=== PATIENT | male | born 1980 | race Caucasian/White ===

== ENCOUNTER 2017-04-01 19:32 | Emergency (ER) | payer BC ==
[~2017-04-01] VITALS: Ht 180.3 cm; Wt 171.0 kg
[2017-04-01 19:36] VITALS: TEMP 36.9; Ht 180.3 cm; Wt 171.0 kg
--- NOTE | 2017-04-01 19:53 | EMERGENCY ROOM VISIT NOTE ---
ED Visit Note First contact with patient: 19:41 CHIEF COMPLAINT: Elbow pain HISTORY OF PRESENT ILLNESS: This 36-year-old male patient presents to the emergency department ambulatory complaining of pain in the anterior right elbow. [place] He was seated. He states the dog pulled behind the chair, holding his arm causing hyperextension. He felt a pop. He has difficulty moving the right elbow. The patient rates his pain as sharp and 6/10. The patient has taken nothing for relief of the pain. The patient has not had previous injuries to this elbow. The patient does not have any numbness or tingling. The patient denies any other injuries. REVIEW OF SYSTEMS: A 6 system review of systems was completed with positives and pertinent negatives listed in the HPI. ALLERGIES: No known drug allergies MEDICATIONS: Vitamins PMH: Patient denies SOCIAL HISTORY: The patient lives locally. He does not smoke PHYSICAL EXAM: Vital Signs: Reviewed Nurse's notes, vital signs stable. GENERAL : This is a 36-year-old male, in no acute distress, well-developed, well- nourished. SKIN: The skin was without rashes, erythema, edema, or bruising. Capillary reflex less than 3 seconds. MUSCULOSKELETAL: There is no erythema or warmth of the right elbow. There is defect noted at the right antecubital area. There is decreased range of motion and strength with flexion of the right elbow. There is no tenderness of the shoulder, wrist, or hand. NEURO: Patient was alert and oriented to person place and time. Normal sensation to light and sharp touch. EMERGENCY DEPARTMENT COURSE: I examined the patient. An x-ray of the right elbow was reviewed myself and read by radiology and shows no fracture or dislocation. The patient was placed in a sling under my direction and the position was satisfactory. I suspect distal biceps tendon rupture. He declined pain medication. He should try antiinflammatories. He should call orthopedics first thing in the morning for a follow up appointment. The patient was discharged home in stable condition. RIGHT ELBOW MIN 3 VIEWS ROUTINE CLINICAL HISTORY: 36 years-old Male presenting with right arm pain, likely biceps tendon rupture Right. TECHNIQUE: Frontal, oblique, and lateral views of the right elbow were obtained. COMPARISON: None. FINDINGS: No acute fracture or malalignment. No elbow joint effusion. Soft tissues grossly normal. IMPRESSION: No acute osseous injury of the right elbow. Current/Historical Medications No Active Prescriptions or Reported Meds Allergies Coded Allergies: No Known Allergies (Unverified , 04/01/17) Vital Signs Date Time Temp Pulse Resp B/P (MAP) Pulse Ox O2 Delivery O2 Flow Rate FiO2 04/01/17 20:52 88 16 124/76 98 04/01/17 19:36 36.9 80 20 120/76 95 Room Air Departure Information Impression Primary Impression: Biceps rupture, distal Dispostion Home / Self-Care Condition GOOD Prescriptions No Active Prescriptions or Reported Meds Referrals Dylon Berumen DO (PCP) Angelo Stephen M.D. Patient Instructions Biceps Tendonitis Distal, My [facility] Additional Instructions Motrin 600mg every 6-8 hours for pain Wear the sling until seen by orthopedics. Contact orthopedics first thing in the morning for a follow up appointment, further assessment and management Return with worsening symptoms. Call the ED [phone] and ask to speak to the caser shoe parts if you have any difficulty securing a timely follow up appointment Problem Qualifiers Primary Impression: Biceps rupture, distal Encounter type: initial encounter Laterality: right Qualified Codes: S46.211A - Strain of muscle, fascia and tendon of other parts of biceps, right arm, initial encounter
--- NOTE | 2017-04-01 20:10 | DIAGNOSTIC IMAGING REPORT ---
RIGHT ELBOW MIN 3 VIEWS ROUTINE CLINICAL HISTORY: 36 years-old Male presenting with right arm pain, likely biceps tendon rupture Right. TECHNIQUE: Frontal, oblique, and lateral views of the right elbow were obtained. COMPARISON: None. FINDINGS: No acute fracture or malalignment. No elbow joint effusion. Soft tissues grossly normal. IMPRESSION: No acute osseous injury of the right elbow. Electronically signed by: Angelo Benitez M.D. 04/01/2017 8:08 PM Dictated Date/Time: 04/01/2017 8:07 PM
[2017-04-01 20:52] VITALS: BP 124/76; PULSE 88; O2SAT 98
== END 2017-04-01 20:52 | disposition home or self-care (01) ==
LOC: C.EDB 19:32 → C.EDD 20:52
DX: S46.211A Strain of muscle, fascia and tendon of other parts of biceps, right arm, initial encounter (principal); X50.0XXA Overexertion from strenuous movement or load, initial encounter; Y92.830 Public park as the place of occurrence of the external cause; Y93.89 Activity, other specified

== ENCOUNTER 2017-04-03 10:47 | Day surgery (SDC) | payer BC ==
--- NOTE | 2017-04-02 18:20 | HISTORY & PHYSICAL EXAMINATION ---
DATE OF ADMISSION: 04/03/2017 FAMILY PHYSICIAN: Dylon Berumen DO CHIEF COMPLAINT: Right elbow pain x1 day. HISTORY OF PRESENT ILLNESS: The patient is a 36-year-old male who presented to the Emergency Room on 04/01/2017 complaining of pain in the anterior right elbow. He states he was at the dog park, he was seated his dog, pulled behind the chair, holding his arm causing hyperextension. He felt a sudden pop in his right elbow. He had difficulty moving the elbow. He states his pain was very sharp and was a 6/10. He has not had any previous injuries to his elbow in the past. He denies any numbness or tingling. He denies any other injuries. He was referred to orthopedics for care of his right elbow distal biceps tendon rupture was of concern. He was seen and evaluated with Dr. Stephen on April 02. X-rays were also taken and showed no osseous injury to the right elbow. He has no palpable distal biceps tendon suggestive of biceps tendon rupture. Surgical intervention was discussed and he agreed to proceed. He is scheduled for repair of his right distal biceps tendon with Dr. Stephen at the [facility] on 04/03/2017. MEDICATIONS: He takes no daily medications. ALLERGIES: He has no known drug allergies. PAST SURGICAL HISTORY: Previous history of a cholecystectomy in 1997. SOCIAL HISTORY: Denies any tobacco use. Does drink 1 alcoholic drink per day. Denies any chemical dependency. FAMILY HISTORY: Significant for stroke and diabetes. REVIEW OF SYSTEMS: As per HPI. Otherwise, reviewed and noncontributory. PHYSICAL EXAMINATION: GENERAL: He is alert and oriented x3. He is in no acute distress. Normal mood and affect. Obese male. Height is 5 feet 11 inches. Weight is 375 pounds. HEENT: Head is atraumatic and normocephalic. Eyes: Extraocular movements intact. Pupils are equal, round and reactive to light. Sclerae are normal. Ears: Hearing is grossly normal. TMs are clear with normal light reflex. Nose normal. Nares are patent bilaterally. Oropharynx is clear. Throat: Oropharynx is clear with no exudate or erythema. Mucous membranes are moist. Good dentition. Uvula midline. NECK: Supple. No lymphadenopathy. Trachea midline. No carotid bruits. Chest is nontender to palpation. No accessory muscle use. LUNGS: Clear to auscultation bilaterally. No adventitious sounds. HEART: Regular rate and rhythm. Normal S1 and S2. No murmurs appreciated. ABDOMEN: Obese, soft, and nondistended. Bowel sounds heard in all 4 quadrants. EXTREMITIES: Examination of his right elbow is painful and limited range of motion of his right elbow. He has tenderness to palpation in the anterior cubital fossa of the right elbow. He has pain with external rotation. Distal neurovascular is intact. No significant swelling. Some mild ecchymosis. Capillary refill is brisk. There is a palpable defect of the distal biceps tendon area. He has decreased range of motion and strength for flexion of the right elbow. There is no tenderness of the shoulder, wrist or hand. RADIOLOGY IMAGES: X-rays of the right elbow were taken and show no acute osseous injury to the right elbow. IMPRESSION: Right distal biceps tendon rupture. PLAN: Surgical intervention was discussed. He has agreed to proceed with surgery and scheduled for repair of his right distal biceps tendon with Dr. Stephen on 04/03/2017 at the [facility]. Risks and complications were discussed and explained to the patient and include, but are not limited to infection, pain, bleeding, scarring, nerve and blood vessel damage, wound problems, weakness, stiffness, incomplete relief of symptoms, heart attack, stroke and . All questions were answered. Postoperative course was discussed. He was given a prescription for Percocet for postoperative pain control. He has a followup appointment scheduled with physical therapy 4-5 days after surgery and then with Dr. Stephen approximately 2 weeks after surgery. He is out of work from today until his next followup appointment with Dr. Stephen, note was provided. He knows to call with any further problems or questions. [facility]PITALS[facility]
[~2017-04-03] VITALS: Ht 180.3 cm; Wt 168.0 kg
[~2017-04-03 10:47] MED LIST: CEFAZOLIN IV 3,000 MG/65 ML D5W IV ONE; LACTATED RINGER'S 1000ML 1,000 ML IV SCH
[2017-04-03] MEDS ORDERED: IBUP-1450 PO ×2 (11:18)
[2017-04-03 11:19] VITALS: BP 119/68; PULSE 71; TEMP 37; O2SAT 96; Ht 180.3 cm; Wt 168.0 kg
[2017-04-03] MEDS ORDERED: CEFAZOLIN IV 3,000 MG/65 ML D5W IV SCH (11:40)
[2017-04-03] MEDS ORDERED: BUPIVACAINE/EPINEPHRINE 0.25% 10 ML VIAL ONE (12:49)
[2017-04-03] MEDS ORDERED: DEXAMETHASONE SOD INJ 4 MG/ML VIAL ONE ×2 (12:49→13:24)
[2017-04-03] MEDS ORDERED: PROPOFOL IV EMULSION 10 MG/ML 20 ML VIAL IV ONE ×2 (13:24→14:28)
[2017-04-03] MEDS ORDERED: LIDOCAINE HCL 2% 2 ML VIAL (20MG/ML) ONE (13:24)
[2017-04-03] MEDS ORDERED: FENTANYL CITRATE INJ 50 MCG/1 ML 2 ML VIAL ONE ×3 (13:24→14:44)
[2017-04-03] MEDS ORDERED: MIDAZOLAM HCL 1 MG/ML 2ML VIAL ONE (13:24)
[2017-04-03] MEDS ORDERED: ONDANSETRON INJ 2 MG/ML 2 ML VIAL ONE (13:24)
[2017-04-03] MEDS ORDERED: ROCURONIUM BROMIDE 10 MG/ML 5 ML VIAL ONE (13:24)
[2017-04-03] MEDS ORDERED: ONDANSETRON INJ 2 MG/ML 2 ML VIAL IV PRN ×2 (13:45→16:30)
[2017-04-03] MEDS ORDERED: ATROPINE SULFATE 0.1 MG/ML 5ML SYR IV PRN (13:45)
[2017-04-03] MEDS ORDERED: EpHEDrine SULFATE INJ 50 MG/ML AMP IV PRN (13:45)
[2017-04-03] MEDS ORDERED: PROMETHAZINE HCL INJ 6.25 MG in SODIUM CHLORIDE 0.9% 50ML 50 ML IV PRN (13:45)
[2017-04-03] MEDS ORDERED: FENTANYL CITRATE INJ 50 MCG/1 ML 2 ML VIAL IV PRN (13:45)
--- NOTE | 2017-04-03 13:47 | History & Physical Bridge Note ---
H&P Re-Evaluation Bridge Note: I have examined the patient, reviewed the History & Physical and in the interval since the performance of the History & Physical I have noted the following changes of clinical significance: No changes noted
[2017-04-03] MEDS ORDERED: SUCCINYLCHOLINE CHLORIDE 20 MG/ML 10 ML VIAL IV ONE (14:28)
[2017-04-03] MEDS ORDERED: POVIDONE-IODINE OP SOLN 30 ML BTL ONE (15:43)
[2017-04-03] MEDS ORDERED: GLYCOPYRROLATE INJ 0.2 MG/ML VIAL ONE (15:45)
[2017-04-03] MEDS ORDERED: NEOSTIGMINE METHYLSULFATE 5 MG/5 ML SYR ONE (15:45)
--- NOTE | 2017-04-03 16:15 | [facility] Operative Report ---
Operative Report Operative Date Apr 03, 2017. Pre-Operative Diagnosis Right distal biceps tendon rupture. Post-Operative Diagnosis Right distal biceps tendon rupture. Procedure(s) Performed Right distal biceps tendon repair Surgeon Dr. Stephen Mental Retardation Nurse Surgeon(s) Patricia Monroe PA-C Estimated Blood Loss 5ML Findings Complete rupture of distal biceps tendon Specimens NONE PER SURGEON Drains none Anesthesia Gen. with peripheral nerve block Complication(s) None Disposition Recovery Room / PACU Indications Patient's a 28-year-old male status post an injury to his right elbow. His clinical findings and history are consistent with a complete rupture of the distal biceps tendon. He is taken to surgery for repair. Description of Procedure Informed consent was obtained. The patient identified as Alejandro brown. He identified the operative site as the right elbow. I marked with my initials. A preoperative surgical timeout was performed. Appropriate dose of IV antibiotics was given. He was positioned supine on the OR table with right arm on a hand table. The anesthetic was administered. Examination showed absence of palpable bilateral distal biceps tendon and absence of the biceps tenodesis effect with forearm rotation. EVT prophylaxis is not indicated. The right upper extremity was prepped and draped in the usual sterile fashion. A sterile tourniquet was utilized. The limb was exsanguinated with the Esmarch. The tourniquet was inflated to 225 mmHg. A 6 cm longitudinal incision was made beginning at the distal transverse elbow crease and proceeding along the course of the radius. Blunt dissection was utilized down through subcutaneous tissues. Transversing veins were either ligated with 2-0 silk ties or electrocauterized. Interval between the flexor pronator muscles and the brachial radialis was identified and the fascia was carefully divided. The lateral antebrachial cutaneous nerve was not encountered during the dissection. The ruptured distal biceps tendon was identified just proximal to the elbow flexion crease and was tagged. There were no adhesions. The forearm was held in maximum supination and dissection was carried down along the biceps sheath until the bicipital tuberosity was encountered. The bursa was debrided. A lady finger retractor was inserted laterally and 2 Homans medially. Care was taken to protect the posterior interosseous nerve. The bone site was prepared using a curet and [place] or to abrade the bone. 2 2.9 mm juggernaut anchors were inserted. One proximal and one distal. One limb of each suture anchor was weaved up through the tendon in a running Krakw suture. One was placed proximal and medial the other was traced distal and lateral. The remaining 2 sutures were passed up in a horizontal mattress fashion. The arm was placed into about 30 of flexion along with maximal supination. The tendon was held down to the bone. An using the free suture from the Krakw stitch which was brought up through the tendon itself. Pulling on this reduced the other stitch woven through the tendon and then these were sequentially tied. The horizontal mattress stitches were tied. The sutures were cut there was full forearm rotation in 90 of flexion. The elbow could be fully extended and the tendon was of firmly adherent to the bone. The tourniquet was let down after 60 minutes of inflation. Leading was controlled electrocautery and pressure. Sterile saline irrigation and Betadine lavage irrigation was performed. The skin was closed with 3-0 Prolene and 3-0 Vicryl's sutures. The arms Coy dry sponges and soft sterile dressing was applied. The arms held in maximum flexion the patient is awake from anesthesia. After he was awake and alert the arm was placed into a long-arm posterior splint and an anterior slab splint with the forearm in neutral position and the elbow flexed 90. He was awakened from anesthesia without difficulty. Taken occurred in stable condition. There are no specimens or complications. Counts are correct in the case. Blood loss was minimal. At the conclusion operation I spoke to the patient's informed her my findings. Detailed postoperative instructions were given. He will be rehabilitated according to the distal biceps tendon repair protocol I attest to the content of the Intraoperative Record and any orders documented therein. Any exceptions are noted below.
[2017-04-03] MEDS ORDERED: OXYC-57 PO ×2 (16:20)
[2017-04-03] MEDS ORDERED: SODIUM CHLORIDE 0.9% 1000ML 1,000 ML IV SCH (16:22)
--- NOTE | 2017-04-03 16:22 | Discharge Instructions-SurgCtr ---
Discharge Instructions Date of Service Apr 03, 2017. Visit Reason for Visit: Right Distal Biceps Tendon Rupture Discharge Discharge Diagnosis / Problem: right distal biceps tendon rupture Discharge Goals Goal(s): Decrease discomfort, Improve function, Increase independence Activity Recommendations Activity Limitations: per Instructions/Follow-up section Weightbearing Status: Right non-weightbearing (upper extremity) Anesthesia . Post Anesthesia Instructions: If you have had General Anesthesia or IV Sedation: * Do not drive today. * Resume driving when surgeon permits. * Do not make important decisions or sign legal documents today. * Call surgeon for: 1. Temperature elevations greater than 101 degrees F. 2. Uncontrollable pain. 3. Excessive bleeding. 4. Persistent nausea and vomiting. 5. Medication intolerance (nausea, vomiting or rash). * For nausea and vomiting use only clear liquids such as: tea, soda, bouillon until nausea subsides, then gradually increase diet as tolerated. * If you have any concerns or questions, call your surgeon's office. If physician is unavailable and it is an emergency, call 911 or go to the nearest emergency room. . Instructions / Follow-Up Instructions / Follow-Up DIET: * Resume previous diet. MEDICATIONS: * Please take your prescriptions as instructed at your pre-op appointment and/ or see medication discharge instructions listed above. * If concerns develop, call your physician's office at . SPECIAL CARE INSTRUCTIONS: * Ice to right elbow as needed for pain and swelling * Elevate right upper extremity as needed for pain and swelling * Keep dressing clean, dry, intact. Keep splint on at all times. Wear sling right upper extremity as needed for comfort. * No use of right arm. No pushing, pulling, or lifting. * Okay to do range of motion of fingers wrist and shoulder as tolerated. * Your surgical extremity may be discolored due to prepping agents used on the skin. A bluish-green tint is a normal variant and should not cause alarm. Call your doctor at [phone] if: * Temperature above 101 degrees * Pain not relieved by pain medicine ordered * There is increased drainage or redness from any incision * You have any unanswered questions, problems or concerns. FOLLOW UP VISIT: * If not already scheduled, please call the office at to schedule a follow-up appointment. * You will start physical therapy on 04/07/2017 at 10 AM * You will follow up with Dr. Stephen on 04/16/2017 at 3 PM. Diet Recommendations Home Diet: no limitations, resume previous diet Procedures Procedures Performed: Right distal biceps tendon repair Pending Studies Studies pending at discharge: no Medical Emergencies . Who to Call and When: Medical Emergencies: If at any time you feel your situation is an emergency, please call 911 immediately. . Non-Emergent Contact Non-Emergency issues call your: Surgeon Call Non-Emergent contact if: temperature is above 101, your pain is not controlled, wound has increased drainage, wound has increased redness, wound has increased pain, you have any medication questions . . "Provider Documentation" section prepared by Patricia Monroe. . [place] Drug Monitoring Program Search Results: patient reviewed within database, no issues identified
--- NOTE | 2017-04-03 16:22 | Anesthesiology Progress Note ---
Anesthesia Post Op Note Date & Time Apr 03, 2017 at 16:21 Vital Signs Pain Intensity: 0 Vital Signs Past 12 Hours Date Time Temp Pulse Resp B/P (MAP) Pulse Ox O2 Delivery O2 Flow Rate FiO2 04/03/17 16:14 36.4 64 14 116/60 100 Oxymask 10 04/03/17 11:19 37.0 71 20 119/68 (85) 96 Room Air Notes Mental Status: alert / awake / arousable, participated in evaluation Pt Amnestic to Procedure: Yes Nausea / Vomiting: adequately controlled Pain: adequately controlled Airway Patency, RR, SpO2: stable & adequate BP & HR: stable & adequate Hydration State: stable & adequate Anesthetic Complications: no major complications apparent
--- NOTE | 2017-04-03 16:25 | [facility] Operative Report ---
Operative Report Operative Date Apr 03, 2017. Pre-Operative Diagnosis Right distal biceps tendon rupture. Post-Operative Diagnosis Right distal biceps tendon rupture. Procedure(s) Performed Right distal biceps tendon repair Surgeon Dr. Angelo Stephen Compliance Examiner Surgeon(s) Patricia Monroe PA-C Estimated Blood Loss 5ML Findings Right distal biceps tendon tear Specimens NONE PER SURGEON Drains none Anesthesia Gen. with peripheral nerve block Complication(s) None Disposition Recovery Room / PACU (stable) Indications Patient is a 36-year-old male presented to the office yesterday complaining of right elbow pain. He was seen and evaluated the emergency room and was thought to have a right distal biceps tendon rupture. He was referred to Dr. Stephen for evaluation and treatment. X-rays were obtained and no bony abnormality was identified. It was confirmed that he had a right distal biceps tendon tear. Surgical intervention was recommended. He agreed to proceed with surgery. Risks and complications were discussed. Informed consent was obtained. Description of Procedure Patient was taken to the operating room, placed under general anesthesia with peripheral nerve block. He was given 3 g of IV Ancef for surgical prophylaxis. Timeout performed. Its prepped and draped in routine sterile fashion. I was present during the entire case, please see Dr. Stephen's operative report for further details. He was awakened and transferred to recovery room in stable condition. I attest to the content of the Intraoperative Record and any orders documented therein. Any exceptions are noted below.
[2017-04-03] MEDS ORDERED: MoRPHine SULFATE 2 MG/ML CARP IV PRN (16:30)
[2017-04-03] MEDS ORDERED: MoRPHine SULFATE 4 MG/ML 1 ML CARP\\VIAL IV PRN (16:30)
[2017-04-03] MEDS ORDERED: OXYCODONE/ACETAMINOPHEN 5-325 TAB PO PRN ×2 (16:30)
[2017-04-03 17:00] VITALS: BP 110/55; PULSE 65; TEMP 37.1; O2SAT 97
[2017-04-03 17:35] VITALS: BP 102/58; PULSE 77; O2SAT 95
[2017-04-03 18:05] VITALS: BP 103/60; PULSE 71; TEMP 37.1; O2SAT 99
[2017-04-04] MEDS ORDERED: CEFAZOLIN IV 3,000 MG/65 ML D5W IV ONE (06:00)
== END 2017-04-03 18:12 | disposition home or self-care (01) ==
LOC: C.ACU 10:47
PROVIDERS: ATTEND Physical Medicine & Rehabilitation Sports Medicine
DX: S46.211A Strain of muscle, fascia and tendon of other parts of biceps, right arm, initial encounter (principal); X50.0XXA Overexertion from strenuous movement or load, initial encounter

== ENCOUNTER → 2017-04-16 | Outpatient (CLI) | payer BC ==
[~2017-04-16] MED LIST changes: -CEFAZOLIN IV 3,000 MG/65 ML D5W IV ONE; -LACTATED RINGER'S 1000ML 1,000 ML IV SCH; +OXYC-57 PO
== END | disposition home or self-care (01) ==
LOC: C.RDSM 10:29
PROVIDERS: ATTEND Physical Medicine & Rehabilitation Sports Medicine
DX: S46.219A Strain of muscle, fascia and tendon of other parts of biceps, unspecified arm, initial encounter (principal); X58.XXXA Exposure to other specified factors, initial encounter

== ENCOUNTER → 2017-06-19 | Outpatient (CLI) | payer BC ==
[~2017-06-19] VITALS: Ht 180.3 cm; Wt 171.0 kg
[2017-06-19 10:12] VITALS: BP 113/76; PULSE 80; Ht 180.3 cm; Wt 171.0 kg
== END | disposition home or self-care (01) ==
LOC: C.NEUR 08:43
PROVIDERS: ATTEND Internal Medicine Pulmonary Disease
DX: G47.33 Obstructive sleep apnea (adult) (pediatric) (principal); Z99.89 Dependence on other enabling machines and devices